=== PATIENT | female | born 1975 | race Caucasian/White ===

== ENCOUNTER → 2016-07-29 | Outpatient (CLI) | payer OTHER | DX: F10.20 Alcohol dependence, uncomplicated (principal) ==

== ENCOUNTER → 2021-12-15 | Outpatient (CLI) | payer BC ==
--- NOTE | 2021-12-15 12:35 | Diagnostic Imaging Report ---
INDICATION: Bilateral knee pain COMPARISON: None available. TECHNIQUE: 6 radiographs of bilateral knees dated 12/15/2021 FINDINGS: Right: No acute fracture or dislocation. No destructive osseous process. Very minimal medial joint space narrowing. Lateral compartment is well maintained. No significant osteophytosis. No knee joint effusion. No suspicious radiopaque foreign body. Left: No acute fracture or dislocation. No destructive osseous process. Mild medial joint space narrowing. Lateral compartment is well maintained. Mild osteophytosis, greatest within the medial compartment. Small knee joint effusion. No suspicious radiopaque foreign body. IMPRESSION: No acute osseous abnormality with mild degenerative changes present, greatest within the medial compartment of the left knee. Small left knee joint effusion. Dictated by: Dictated on workstation # [id number]
--- NOTE | 2021-12-15 13:08 | Diagnostic Imaging Report ---
INDICATION: Right hip pain COMPARISON: None available TECHNIQUE: 3 radiographs of the pelvis and right hip dated 12/15/2021. FINDINGS: No acute fracture or dislocation. No destructive osseous process. The sacroiliac joints and pubic symphysis are intact. Severe joint space narrowing of the right hip, particularly superiorly with associated advanced osteophyte formation involving the right hip. Mild joint space narrowing of the left hip with mild osteophyte formation is also noted. No collapse of the right femoral head. IMPRESSION: No acute osseous abnormality with advanced degenerative changes of the right hip, advanced for age. Mild degenerative changes of the left hip. Dictated by: Dictated on workstation # [id number]
== END ==
LOC: RAD FS 09:21
PROVIDERS: ATTEND Nurse Practitioner
DX: M16.11 Unilateral primary osteoarthritis, right hip (principal); M17.0 Bilateral primary osteoarthritis of knee
CPT/HCPCS: 73502